=== PATIENT | male | born 1990 | race Caucasian/White ===

== ENCOUNTER 2018-10-08 00:43 | Emergency (ER) | payer OTHER ==
[2018-10-08 00:52] VITALS: BP 129/78
[2018-10-08] MEDS ORDERED: HYDROCODONE/ACETAMINOPHEN 5-325 MG TABLET PO ONE (01:04)
[2018-10-08] MEDS ORDERED: LIDOCAINE 1%/EPINEPHRINE INJ 20 ML VIAL INJ ONE (01:04)
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
[2018-10-08] MEDS ORDERED: CEPHALEXIN 500 MG CAPSULE PO ONE (02:31)
== END 2018-10-08 03:29 | disposition home or self-care (01) ==
LOC: ER 00:43
DX: S51.812A Laceration without foreign body of left forearm, initial encounter (principal); S70.312A Abrasion, left thigh, initial encounter; V28.4XXA Motorcycle driver injured in noncollision transport accident in traffic accident, initial encounter; M25.551 Pain in right hip; G89.29 Other chronic pain
CPT/HCPCS: 12002; 99283; 73070; J3490

== ENCOUNTER 2018-10-15 14:26 | Emergency (ER) | payer OTHER ==
[2018-10-15] MEDS ORDERED: MUPIROCIN 2% OINTMENT 22 GM TP ONE (15:59)
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
[2018-10-15 16:25] VITALS: BP 142/88
== END 2018-10-15 16:20 | disposition home or self-care (01) ==
LOC: ER 14:26
DX: S51.812D Laceration without foreign body of left forearm, subsequent encounter (principal); X58.XXXD Exposure to other specified factors, subsequent encounter
CPT/HCPCS: J3490